=== PATIENT | female | born 1950 | race Caucasian/White ===

== ENCOUNTER 2019-10-15 08:19 | Outpatient (CLI) | payer MEDICARE, SELFPAY ==
--- NOTE | 2019-10-15 08:28 | MM_ITS ---
WS: [id number] BILATERAL DIGITAL SCREENING MAMMOGRAPHY WITH CAD CLINICAL INFORMATION: SCREENING HISTORY: Screening mammogram. No current complaints. COMPARISON: TECHNIQUE: Bilateral CC and MLO views. FINDINGS: Scattered fibroglandular densities bilaterally. No suspicious focal mass, asymmetry, calcifications, or architectural distortion. No evidence of malignancy. Stable dystrophic calcifications right breast . MM/[place] [id number] IMPRESSION: BI-RADS: 2-Benign FOLLOW UP: 1 Year Follow-up Recommend return to annual screening mammography.
== END 2019-10-15 08:20 | disposition home or self-care (01) ==
PROVIDERS: PCP Physician Assistant; Visit Provider Internal Medicine
DX: Z12.31 Encounter for screening mammogram for malignant neoplasm of breast (principal)
CPT/HCPCS: 77067

== ENCOUNTER 2019-10-26 14:25 | Outpatient (CLI) | payer MEDICARE, SELFPAY ==
--- NOTE | 2019-10-26 14:30 | XR_ITS ---
WS: [id number] DEXA (DUAL ENERGY X-RAY ABSORPTIOMETRY) Bone mineral density was performed using a [employer] machine. HISTORY: POST MENOPAUSAL COMPARISON: None available. Lumbar spine BMD (L1-L4): 0.977 g/cm2 T score: -1.7 Z score: 0.0 Total hip BMD: Left: 0.774 g/cm2. T score: -1.9 Z score: -0.4 Right: 0.756 g/cm2. T score: -2.0 Z score: -0.6 10 year probability of a major osteoporotic fracture is 26%. XR/XR DEXA axial skeleton* [id number] IMPRESSION: OSTEOPENIA based upon the WHO classification for females.
== END 2019-10-26 14:26 | disposition home or self-care (01) ==
LOC: RADWPI 14:27
PROVIDERS: PCP Physician Assistant; Visit Provider Physician Assistant
DX: Z78.0 Asymptomatic menopausal state (principal); M85.80 Other specified disorders of bone density and structure, unspecified site
CPT/HCPCS: 77080

== ENCOUNTER 2020-10-31 06:32 | Day surgery (SDC) | payer MEDICARE, SELFPAY ==
[2020-10-29 08:57] VITALS: BMI 23.3
[2020-10-31 07:18] VITALS: BP 111/66; PULSE 65; RESP 18; TEMP 36.6; O2SAT 98
[2020-10-31] MEDS: sodium chloride 0.9% 1,000 ML 30 ML IV (07:23)
--- NOTE | 2020-10-31 07:35 | ANES.PREANE2 ---
Pre-Anesthetic Assessment Pre-Anesthetic Assessment: Height/Weight: Height 1.65 m Weight 63.503 kg Temp Pulse Resp BP Pulse Ox 98 F 65 18 111/66 98 10/31/20 07:18 10/31/20 07:18 10/31/20 07:18 10/31/20 07:18 10/31/20 07:18 Preop Diagnosis: screening Proposed Procedure: Operation Date: 10/31/20 07:15 Proposed Procedures p Colonoscopy 29464 Z86.010(Not Applicable) - Mika Duke MD Familial anesthetic complications: none Was Beta Emma taken within 24 hours: N/A Was Clonidine taken within 24 hours: N/A Last intake: Intake Last Liquid Date 10/30/20 Last Liquid Time 18:00 Last Solid Date 10/29/20 Last Solid Time 16:00 Last Intake: 18:00 Social: Social History: No alcohol and No tobacco Exam: Pre-Anes Outpt Exam: alert, oriented x 3, clear to auscultation bilaterally and regular rate & rhythm Airway: Submandibular: WNL Cervical ROM: WNL MP: 1 Dentition: Full Pulmonary: Pulmonary: None reported CV/HEM: CV/HEM: None reported : : None reported Hepatic: Hepatic: None reported GI: GI: None reported Metabolic: Metabolic: None reported Musc/skel: Musc/skel: Lower Back Pain and OA/DJD Neuropsych: Neuropsych: None reported Anesthetic Plan: ASA status: 2 Anesthesia: MAC Risk of > 500 ml blood loss (7ml/kg in children): No Meds/Allergies Current Medications: Current Medications Generic Name Dose Route Start Last Admin Trade Name Freq PRN Reason Stop Dose Admin Sodium Chloride 1,000 mls @ 30 ml s/hr 10/31/20 07:15 10/31/20 07:23 Sodium Chloride 0.9% IV 11/01/20 07:14 30 mls/hr .Q24H BEAR Administration Data Anesthesia Cardiac Studies: No Data to Display
--- NOTE | 2020-10-31 07:41 | W.PM.OPSUD ---
Surgery/Procedure H&P Update DATE OF PROCEDURE: October 31, 2020 DATE H&P PERFORMED: 10/27/20 H&P UPDATE INFORMATION: I have reviewed H&P completed within last 30 days, I have examined patient prior to procedure, No changes to prior documentation and H&P to be scanned into chart PREOP DIAGNOSIS: history of adenomatous polyps PLANNED PROCEDURE: Operation Date: 10/31/20 07:15 Proposed Procedures p Colonoscopy 88947 Z86.010(Not Applicable) - Mika Duke MD Related Problem List Diagnoses (1) History of colon polyps:
[2020-10-31 08:16] VITALS: BP 94/61; PULSE 70; RESP 18; TEMP 36.4; O2SAT 97
[2020-10-31 08:27] VITALS: BP 104/65; PULSE 59; RESP 16; O2SAT 100
--- NOTE | 2020-10-31 10:16 | ANE.PACU2 ---
Inpatient post-anesthesia follow up: Airway intact: Yes Vital signs: Temperature 97.5 F Pulse Rate 59 Respiratory Rate 16 Blood Pressure 104/65 Pulse Oximetry 100 Oxygen Delivery Me thod Room Air Oxygen Flow Rate Fraction of Inspir ed Oxygen Hydration adequate: Yes Nausea and vomiting: No Pain level: 1
== END 2020-10-31 08:38 | disposition home or self-care (01) ==
PROVIDERS: PCP Physician Assistant; Visit Provider Family Medicine
PROC: 0DJD8ZZ Inspection of Lower Intestinal Tract, Via Natural or Artificial Opening Endoscopic (ICD-10-PCS; CPT 45378; principal; 2020-10-31 07:15)
DX: Z86.010 Personal history of colon polyps (principal); K64.8 Other hemorrhoids
CPT/HCPCS: 12345; 45378; 96360; J2704; J7030

== ENCOUNTER 2021-09-25 07:41 | Outpatient (CLI) | payer MEDICARE, SELFPAY ==
--- NOTE | 2021-09-25 07:51 | MM_ITS ---
WS: [id number] SCREENING DIGITAL BREAST TOMOSYNTHESIS MAMMOGRAM WITH CAD HISTORY: SCREENING COMPARISON: 10/15/2019, 09/22/2018 and 09/21/2017 Bilateral CC and MLO with tomosynthesis and synthetic mammography submitted. Computer aided detection analyzed. Breast composition: There are scattered areas of fibroglandular density. There is an asymmetry centra l to the nipple in the anterior breast seen only on the MLO projection. Asymmetries with spiculated m easuring 7 mm. Cluster benign calcifications mid breast at 12:00 RIGHT breast. MM/[place] [id number] IMPRESSION: BI-RADS: 0-Incomplete: Need additional imaging evaluation FOLLOW UP: Need Additional Imaging RIGHT breast: Spot compression views (MLO). True ML. Ultrasound to follow if ab normality persists.
== END 2021-09-25 07:42 | disposition home or self-care (01) ==
LOC: RAD 07:45
PROVIDERS: PCP Physician Assistant; Visit Provider Physician Assistant
DX: Z12.31 Encounter for screening mammogram for malignant neoplasm of breast (principal)
CPT/HCPCS: 77063; 77067

== ENCOUNTER 2021-09-29 15:43 | Outpatient (CLI) | payer MEDICARE, SELFPAY ==
--- NOTE | 2021-09-29 16:00 | XR_ITS ---
WS: [id number] SCREENING DEXA SCAN [employer] CLINICAL INFORMATION: POST MENOPAUSAL. COMPARISON: None. FINDINGS: The L1-L4 bone mineral density measures 1.007 g/cm2. This corresponds to a T score score of -1.4 and Z score of 0.4. Left femoral neck bone mineral density measures 0.773 g/cm2. This corresponds to a T score of -1.9 an d Z score of -0.2. Right femoral neck bone mineral density measures 0.742 g/cm2. This corresponds to a T score -2.1of an d Z score of -0.5. Mean femoral neck bone mineral density measures 0.758 g/cm2. This corresponds to a T score of -2.0 an d Z score of -0.3. XR/XR DEXA axial skeleton* [id number] IMPRESSION: Osteopenia Patient's FRAX calculated 10 year probability for major osteoporotic fracture i s 15.7 % and osteoporotic hip fracture is 4.7%. Bone mineralization lumbar spine has increased 3.1% since 2019 Bone mineralization femoral necks has decreased -0.9% since 2019
== END 2021-09-29 15:44 | disposition home or self-care (01) ==
PROVIDERS: PCP Physician Assistant; Visit Provider Physician Assistant
DX: Z78.0 Asymptomatic menopausal state (principal); M85.80 Other specified disorders of bone density and structure, unspecified site
CPT/HCPCS: 77080

== ENCOUNTER 2021-10-23 07:42 | Outpatient (CLI) | payer MEDICARE, SELFPAY ==
--- NOTE | 2021-10-23 07:46 | MM_ITS ---
WS: [id number] ADDITIONAL VIEWS RIGHT MAMMOGRAM WITH DIGITAL BREAST TOMOSYNTHESIS. HISTORY: Abnormal mammogram 09/25/2021. COMPARISON: 09/25/2021 and 10/15/2019. Spot compression views RIGHT breast in CC, MLO projections and true ML submitted with digital breast tomosynthesis and SM. The asymmetry seen only on the MLO projection of the RIGHT breast resolves with additional imaging. N ormal fibroglandular pattern is now present. This was superimposed soft tissue. Benign calcification 12:00. MM/[place] [id number] IMPRESSION: BI-RADS: 2-Benign FOLLOW UP: 1 Year Follow-up Return to annual screening mammography.
== END 2021-10-23 07:43 | disposition home or self-care (01) ==
LOC: RAD 07:43
PROVIDERS: PCP Physician Assistant; Visit Provider Physician Assistant
DX: R92.8 Other abnormal and inconclusive findings on diagnostic imaging of breast (principal)
CPT/HCPCS: 77061

== ENCOUNTER 2022-11-19 07:41 | Outpatient (CLI) | payer MEDICARE, SELFPAY ==
--- NOTE | 2022-11-19 07:49 | MM_ITS ---
WS: [id number] BILATERAL SCREENING DIGITAL TOMOSYNTHESIS MAMMOGRAM WITH CAD HISTORY: SCREENING COMPARISON: 10/23/2021 and 09/25/2021 and 10/15/2019 Bilateral CC and MLO views with tomosynthesis and synthetic mammography submitted. Computer aided det ection analyzed. Breast composition: There are scattered areas of fibroglandular density. No suspicious masses, microc alcifications or architectural distortion. Benign calcifications in each breast. IMPRESSION: MM/[place] [id number] BI-RADS: 2-Benign FOLLOW UP: 1 Year Follow-up
== END 2022-11-19 07:42 | disposition home or self-care (01) ==
PROVIDERS: PCP Physician Assistant; Visit Provider Physician Assistant
DX: Z12.31 Encounter for screening mammogram for malignant neoplasm of breast (principal)
CPT/HCPCS: 77063; 77067

== ENCOUNTER 2023-11-22 08:13 | Outpatient (CLI) | payer MEDICARE, SELFPAY ==
--- NOTE | 2023-11-22 08:20 | MM_ITS ---
WS: [id number] BILATERAL 3D TOMOSYNTHESIS DIGITAL SCREENING MAMMOGRAPHY WITH CAD CLINICAL INFORMATION: SCREENING HISTORY: Screening mammogram. No current complaints. COMPARISON: 2022 TECHNIQUE: Bilateral CC and MLO views. FINDINGS: Scattered fibroglandular densities bilaterally. No suspicious focal mass, asymmetry, calcifications, or architectural distortion. No evidence of malignancy. Stable coarse calcifications RIGHT breast. A few tiny punctate calcifications LEFT breast. MM/MM scr tomosynthesis [id number] IMPRESSION: DENSITY: There are scattered areas of fibroglandular density. BI-RADS: 2 - Benign. FOLLOW UP: 1 Year Follow-up Recommend return to annual screening mammography.
== END 2023-11-22 08:14 | disposition home or self-care (01) ==
LOC: RAD 08:14
PROVIDERS: PCP Physician Assistant; Visit Provider Physician Assistant
DX: Z12.31 Encounter for screening mammogram for malignant neoplasm of breast (principal); R92.323 Mammographic fibroglandular density, bilateral breasts; R92.1 Mammographic calcification found on diagnostic imaging of breast
CPT/HCPCS: 77063; 77067

== ENCOUNTER 2023-12-22 13:24 | Outpatient (CLI) | payer MEDICARE, SELFPAY ==
--- NOTE | 2023-12-22 13:28 | XR_ITS ---
WS: [id number] DEXA (DUAL ENERGY X-RAY ABSORPTIOMETRY) Bone mineral density was performed using a [employer] machine. HISTORY: POSTMENOPAUSAL COMPARISON: 09/29/2021 Lumbar spine BMD (L1-L4): 1.013 g/cm2 T score: -1.4 Z score: 0.4 Total hip BMD: Left: 0.760 g/cm2. T score: -2.0 Z score: -0.2 Right: 0.739 g/cm2. T score: -2.1 Z score: -0.4 10 year probability of a major osteoporotic fracture is 17.1%. Compared to the prior study from 09/29/2021. Lumbar spine bone mineral density has increased by 0.6%. Bilateral hips bone mineral density has decreased by 1.2%. XR/XR DEXA axial skeleton* [id number] IMPRESSION: OSTEOPENIA based upon the WHO classification for females. No significant change in bone mineral density since the prior studies.
== END 2023-12-22 13:25 | disposition home or self-care (01) ==
LOC: RAD 13:25
PROVIDERS: PCP Physician Assistant; Visit Provider Physician Assistant
DX: Z13.820 Encounter for screening for osteoporosis (principal); Z78.0 Asymptomatic menopausal state; M85.80 Other specified disorders of bone density and structure, unspecified site
CPT/HCPCS: 77080

== ENCOUNTER 2024-07-23 06:15 | Emergency (ER) | payer MEDICARE, SELFPAY ==
--- NOTE | 2024-07-23 06:32 | W.ED.GENADLT ---
HPI - General Adult General: Chief complaint: Abdominal Pain Stated complaint: R side & back pain, n,v Time Seen by Provider: 07/23/24 06:30 History of Present Illness: 74-year-old female presents emergency room with complaint of right flank and back pain. She has had some nausea and vomiting along with this. She denies any dysuria urgency or frequency no cough no rash no history of recurrent urinary tract infections or nephrolithiasis. No fever sweats or chills. 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 Mild exacerbation with movement such as sitting up in bed during exam. Associated symptoms: Reports nausea and vomiting; Deny chest pain, dyspnea or rash Related Data Home Medications ?Medication ?Instructions ?Recorded ?Confirmed ascorbic acid (vitamin C) 500 mg 500 mg PO DAILY 10/29/20 07/23/24 tablet (Vitamin C) biotin 10,000 mcg capsule 10,000 mcg PO DAILY 10/29/20 07/23/24 calcium carbonate (Calcium 600) 1,500 mg PO DAILY 10/29/20 07/23/24 cholecalciferol (vitamin D3) 25 25 mcg PO DAILY 10/29/20 07/23/24 mcg (1,000 unit) chewable tablet (Vitamin D3) magnesium 200 mg tablet 400 mg PO DAILY 10/29/20 07/23/24 [id number] 8 mg-folic 400 1 tab PO DAILY 10/29/20 07/23/24 mcg-K 50 mcg-lutein 300 mcg tablet (Multivitamin Women 50 Plus) vit A 300 mcg-C 200 mg-E 27 1 tab PO BID 10/29/20 07/23/24 mg-lutein 2 mg and minerals tablet (Vision Formula (with lutein)) acetaminophen 500 mg tablet 1,000 mg PO Q6H PRN Fever Or Pain 07/23/24 07/23/24 (Tylenol Extra Strength) Previous Rx's ?Medication ?Instructions ?Recorded diclofenac sodium 75 mg 75 mg PO Q12H PRN pain #20 tabs 07/23/24 tablet,delayed release tizanidine 4 mg tablet 4 mg PO Q6H PRN muscle spasticity 07/23/24 #20 tabs Allergies Allergy/AdvReac Type Severity Reaction Status Date / Time latex Allergy ADR-Itching Verified 10/29/20 08:59 Sulfa (Sulfonamide Allergy ADR-Itching Verified 10/29/20 08:59 Antibiotics) Review of Systems Const: Denies: fever(s) or chills Card: Denies: chest pain Resp: Denies: dyspnea GI: Reports: nausea and vomiting; Denies: abdominal pain : Reports: flank pain (Right); Denies: dysuria, urinary frequency or urinary urgency Musc: Reports: back pain; Denies: neck pain Skin/Breast: Denies: rash PFSH ED PFSH: Medical History (Updated 07/23/24 @ 08:53 by Deondre Argueta DO) History of colon polyps Surgical History (Updated 07/23/24 @ 06:54 by Deondre Argueta DO) History of cholecystectomy Physical Exam Const: COMMON NORMALS: no acute distress GENERAL APPEARANCE: cooperative and comfortable ORIENTATION/CONSCIOUSNESS: Yes awake, Yes oriented to person, Yes oriented to place and Yes oriented to time HENMT: COMMON NORMALS: normocephalic, atraumatic and hearing grossly normal bilaterally HEAD & SCALP: normocephalic and atraumatic Resp: COMMON NORMALS: normal respiratory effort, No retractions, No use of accessory muscles and clear to auscultation bilaterally AUSCULTATION: clear to auscultation bilaterally Cardio: COMMON NORMALS: regular rate, regular rhythm and No murmurs present (Cardio) RATE: regular rate RHYTHM: regular rhythm GI: COMMON NORMALS: Soft to palpation and No hepatosplenomegaly present AUSCULTATION: Yes normoactive bowel sounds PALPATION: Yes Soft to palpation, No Tenderness to palpation present (GI), No Guarding due to palpation present (GI) and Yes No hepatosplenomegaly present Extremity: COMMON NORMALS: normal to inspection, capillary refill normal, no clubbing, cyanosis or edema, no calf tenderness and no pedal edema Neuro: SENSORIUM/ORIENTATION: Yes oriented to person, Yes oriented to place and Yes oriented to time Skin: COMMON NORMALS: no rashes or lesions noted GENERAL SKIN EXAM: no rashes or lesions noted Course Vital Signs: Vital signs: Vital Signs Temperature 97.7 F 07/23/24 06:37 Pulse Rate 62 07/23/24 08:56 Respiratory Rate 16 07/23/24 08:56 Blood Pressure 154/62 07/23/24 08:56 Pulse Oximetry 99 07/23/24 08:56 Oxygen Delivery Me thod Room Air 07/23/24 07:21 MDM - General Adult Medical Decision Making Patient did have some ketones in urine anion gap not very significant at this point. CT of the abdomen pelvis negative for any acute pathology has some moderate constipation. Her presentation is more suggestive of the pain being caused by musculoskeletal suspect related to the activity yesterday we will discharge her home with anti-inflammatories and muscle relaxer. There is a comment about bile ducts on the CT however her pain is not consistent with this. She does not have any right upper quadrant abdominal pain and there is no abnormalities in her liver functions or bilirubin. Medical Records I reviewed the patient's medical records. Lab Data I reviewed the patient's lab results. 07/23/24 06:40 07/23/24 06:40 Radiology Impressions Abdomen/Pelvis CT 07/23/24 06:55 IMPRESSION: 1. There is a large amount of stool content overall suggestive of constipation with otherwise nonobstructive overall bowel-gas appearance. 2. There is some prominence of the bile ducts overall albeit with cholecystectomy type changes. Consider hepatobiliary laboratory profile studies. 3. No fluid collections or acute inflammatory stranding changes are appreciated. 4. There is an oval nodular focus of the left paravertebral thoracic margin of uncertain chronicity and etiology. Consider comparison any previous older study if clinically available. Otherwise, consider MRI of the thoracic spine with and without contrast for further evaluation. Laboratory Results WBC 7.58 10^3/uL (3.29-11.43) 07/23/24 06:40 RBC 4.25 10^6/uL (3.85-5.65) 07/23/24 06:40 Hgb 13.00 g/dL (11.27-16.99) 07/23/24 06:40 Hct 39.3 % (36-47) 07/23/24 06:40 MCV 92.5 fl (85-98) 07/23/24 06:40 MCH 30.6 pg (27-33) 07/23/24 06:40 MCHC 33.1 g/dL (30-55) 07/23/24 06:40 RDW 12.1 % (12.1-15.1) 07/23/24 06:40 Plt Count 230 10^3/cmm (157-399) 07/23/24 06:40 MPV 9.4 fL (7.4-10.4) 07/23/24 06:40 Neut % (Auto) 80.6 % 07/23/24 06:40 Lymph % (Auto) 14.6 % 07/23/24 06:40 [place] % (Auto) 3.6 % 07/23/24 06:40 Eos % (Auto) 0.1 % 07/23/24 06:40 Baso % (Auto) 0.8 % 07/23/24 06:40 Neut # (Auto) 6.11 10^3/uL (1.8-7.7) 07/23/24 06:40 Lymph # (Auto) 1.1 10^3/uL (0.8-4.8) 07/23/24 06:40 [place] # (Auto) 0.3 10^3/uL (0.2-0.9) 07/23/24 06:40 Eos # (Auto) 0.0 10^3/uL (0.0-0.8) 07/23/24 06:40 Baso # (Auto) 0.1 10^3/uL (0.0-0.1) 07/23/24 06:40 Nucleated RBC % (auto) 0 % 07/23/24 06:40 Nucleated RBCs # 0.0 /100WBC 07/23/24 06:40 Sodium 139 mmol/L (136-145) 07/23/24 06:40 Potassium 3.7 mmol/L (3.5-5.1) 07/23/24 06:40 Chloride 104 mmol/L (98-107) 07/23/24 06:40 Carbon Dioxide 19 mmol/L (22-29) L 07/23/24 06:40 Anion Gap 19.7 (5-19) H 07/23/24 06:40 BUN 16 mg/dL (8-23) 07/23/24 06:40 Creatinine 0.7 mg/dL (0.5-0.9) 07/23/24 06:40 GFR Calculation Not Reportable 07/23/24 06:40 Glucose 116 mg/dL (65-115) H 07/23/24 06:40 Calculated Osmolality 290 mOsm/kg (285-295) 07/23/24 06:40 Calcium 9.2 mg/dL (8.5-10.5) 07/23/24 06:40 Total Bilirubin 0.7 mg/dL (0.15-1.2) 07/23/24 06:40 AST 22 U/L (0-32) 07/23/24 06:40 ALT 17 U/L (0-33) 07/23/24 06:40 Alkaline Phosphatase 82 U/L (35-105) 07/23/24 06:40 Total Protein 7.4 g/dL (6.6-8.7) 07/23/24 06:40 Albumin 4.2 g/dL (3.5-5.2) 07/23/24 06:40 Globulin 3.2 g/dL (1.3-4.6) 07/23/24 06:40 Urine Color Yellow (Yellow) 07/23/24 07:37 Urine Appearance Clear (CLEAR) 07/23/24 07:37 Urine pH 6.0 (5-7) 07/23/24 07:37 Ur Specific [place] 1.040 (1.005-1.030) H 07/23/24 07:37 Urine Protein Negative (Negative) 07/23/24 07:37 Urine Glucose (UA) Negative (Normal) 07/23/24 07:37 Urine Ketones 3+ (Negative) H 07/23/24 07:37 Urine Blood Negative (Negative) 07/23/24 07:37 Urine Nitrate Negative (Negative) 07/23/24 07:37 Urine Bilirubin Negative (Negative) 07/23/24 07:37 Urine Urobilinogen 0.2 mg/dL (Negative) 07/23/24 07:37 Ur Leukocyte Esterase Negative (Negative) 07/23/24 07:37 Urine RBC 0-2 /hpf (0-2) 07/23/24 07:37 Urine WBC 0-5 /hpf (0-5) 07/23/24 07:37 Ur Squamous Epith Cells 0-5 /hpf (0-5) 07/23/24 07:37 Amorphous Sediment Not Reportable 07/23/24 07:37 Urine Bacteria None seen /hpf (NONE) 07/23/24 07:37 Hyaline Casts 0.81 /lpf 07/23/24 07:37 All radiology interpretation(s) finalized by discharge Discharge Plan Discharge Patient Disposition: Home Clinical Impression: Acute right-sided thoracic back pain, Constipation Condition: Stable Prescriptions: New tizanidine 4 mg tablet 4 mg PO Q6H PRN (Reason: muscle spasticity) Qty: 20 0RF Rx Instructions: do not exceed 3 doses per 24 hrs diclofenac sodium 75 mg tablet,delayed release (DR/EC) 75 mg PO Q12H PRN (Reason: pain) Qty: 20 0RF No Action calcium carbonate [Calcium 600] 600 mg calcium (1,500 mg) Tablet 1,500 mg PO DAILY ascorbic acid (vitamin C) [Vitamin C] 500 mg Tablet 500 mg PO DAILY biotin 10,000 mcg Capsule 10,000 mcg PO DAILY magnesium 200 mg Tablet 400 mg PO DAILY Vision Formula (with lutein) 1,000 unit-200 mg-60 unit-2 mg Tablet 1 tab PO BID cholecalciferol (vitamin D3) [Vitamin D3] 25 mcg (1,000 unit) Tablet,Chewable 25 mcg PO DAILY Multivitamin Women 50 Plus 8 mg iron-400 mcg-300 mcg Tablet 1 tab PO DAILY acetaminophen [Tylenol Extra Strength] 500 mg Tablet 1,000 mg PO Q6H PRN (Reason: Fever Or Pain) Discharge Orders: Discharge ED (Routine); Ordered 07/23/24 Ordered By: Deondre Argueta Referrals: Jossie Salmon PA [Primary Care Provider, Physicians Correspondence Specialist] Discharge Diet: Usual diet Discharge Activity: Increase activity as tolerated Patient Instructions: Opioid Safety, Pain Management Activity Restrictions/Additional Instructions: Thank you for choosing [facility] for your healthcare needs today. It is very important that you follow up as instructed or that you return to the Emergency Department should you have concerns or if your condition changes or worsens in any way. You were seen in the emergency room with complaints of right flank pain. Examination in the emergency room did not show any elevation of your white count CT did not show any acute pathology there is no sign of a bladder infection or kidney stone no sign of any liver problems. Based on your presentation description suspect some of this movement musculoskeletal from the activities you were doing yesterday. There was constipation noted on the CT this could play a role as well. You were given prescriptions for diclofenac and tizanidine to use as needed for back pain you can also use [id number] laxatives to relieve the constipation that was noted on the CT. Follow-up with your primary care doctor if your symptoms persist Print Language: [place] Coding Level of Care Code ED Glaze Carrier for Francisca Milan
[2024-07-23 06:37] VITALS: BP 145/61; PULSE 53; RESP 16; TEMP 36.5; O2SAT 99; BMI 22.6
[2024-07-23 06:45] LABS: Basophils # 0.1 10^3/uL (0.0-0.1); Basophils % 0.8 %; Eosinophils % 0.1 %; Hematocrit 39.3 % (36-47); Lymphocytes # 1.1 10^3/uL (0.8-4.8); Lymphocytes % 14.6 %; Mean Corpuscular HGB Conc 33.1 g/dL (30-55); Mean Corpuscular Hemoglobin 30.6 pg (27-33); Mean Corpuscular Volume 92.5 fl (85-98); Mean Platelet Volume 9.4 fL (7.4-10.4); Monocytes # 0.3 10^3/uL (0.2-0.9); Monocytes % 3.6 %; Neutrophils # 6.11 10^3/uL (1.8-7.7); Neutrophils % 80.6 %; Nucleated Red Blood Cells % 0 %; Platelet Count 230 10^3/cmm (157-399); Red Blood Count 4.25 10^6/uL (3.85-5.65); Red Cell Distribution Width 12.1 % (12.1-15.1); White Blood Count 7.58 10^3/uL (3.29-11.43)
--- NOTE | 2024-07-23 06:55 | CTR_ITS ---
PROCEDURE INFORMATION: Exam: CT Abdomen And Pelvis With Contrast Exam date and time: 07/23/2024 7:23 AM Age: 74 years old Clinical indication: Abdominal pain; Localized; Right; Prior surgery; Surgery date: 6+ months; Surgery type: Gb; C/O RT sided abd/flank pain with nausea. ; Additional info: Abd pain. No history of recent trauma or surgery is otherwise provided. TECHNIQUE: Imaging protocol: Computed tomography of the abdomen and pelvis with contrast. 205image(s) are provided. Radiation optimization: All CT scans at this facility use at least one of these dose optimization techniques: automated exposure control; mA and/or kV adjustment per patient size (includes targeted exams where dose is matched to clinical indication); or iterative reconstruction. Contrast material: OMNI 350; Contrast volume: 100 ml; Contrast route: INTRAVENOUS (IV); Other technique: Axial images are available with sagittal and coronal reconstruction views. Automated dose exposure control is utilized. The DLP is 369.87. COMPARISON: No relevant prior studies are currently available. RADIATION DOSE METRICS: Total DLP (mGy-cm): 369.87 FINDINGS: Lungs: No lobar consolidation is appreciated. There is minimal subsegmental atelectasis versus post inflammatory scarring demonstrated. Heart: No significant pericardial fluid collection is appreciated. Liver: The hepatic parenchyma appears subtly heterogeneous overall. There is some cystic appearance although too small to characterize right lobe. There does appear to be some slight periportal tracking as well as borderline bile ducts. Gallbladder and biliary ducts: Cholecystectomy clips are present. The distal common bile duct measures around 6 mm with no radiopaque obstructive calculus currently appreciated.Distal most, ampullary level evaluation is limited. Pancreas: No pancreatic ductal dilatation or calculus is currently appreciated. Spleen: Unremarkable. Adrenal glands: There appears to be subtle adrenal hypertrophy. Kidneys and ureters: There is homogeneous renal parenchymal enhancement with no radiopaque obstructive calculus or hydronephrosis appreciated. There appear to be some areas of early contrast excretion versus nonobstructive calcifications for example including of the left. Stomach and bowel: Some aspects of the colon are undistended. This may also be peristaltic related.There is abundant stool present limiting mucosal detail evaluation.The bowel gas pattern appears nonobstructive. There is a small sliding-type hiatal hernia demonstrated with slight gastroesophageal fold thickening. There appears to be some small duodenal diverticular related change present. There are some minimal small bowel fluid levels without significant dilatation overall.Consider if there is a history of diarrhea or gastroenteritis. Appendix: No evidence of appendicitis. Intraperitoneal space: No free air or significant free fluid collections are appreciated. Vasculature: No abdominal aortic saccular aneurysmal dilatation is appreciated with some chronic atherosclerotic related changes. Lymph nodes: There are subcentimeter predominant para-aortic and mesenteric lymph nodes overall present. Urinary bladder: The bladder is incompletely fluid filled for evaluation which may exagerate the wall thickness. This can also be seen with post inflammation sequela. Reproductive: There appears to be some small amount of central uterine canal heterogeneity, fluid. Bones/joints: No displaced fracture or dislocation is appreciated.There are some degenerative changes of the hips and spine overall present. There is some decreased vertebral, superior endplate height albeit with well corticated appearing margins and Schmorl's node related change of the fourth lumbar level. Consider overall if there is localized point tenderness. There is a left paraspinal oval nodular focus which measures around 2.1 x 1.5 cm with some marginal calcification posteriorly as well as central Hounsfield units of around 50. This directly abuts the adjacent eleventh thoracic vertebral margin. The etiology is uncertain. Soft tissues: No radiopaque foreign body or diffuse subcutaneous emphysema is appreciated. There does appear to be some punctate subcutaneous emphysema although may be injection related for example posterolaterally on the right. Consider if there is history of injection at this site. No subcutaneous fluid collections are appreciated. There is some motion artifact present. CT/CT abdomen pelvis w con* [id number] IMPRESSION: 1. There is a large amount of stool content overall suggestive of constipation with otherwise nonobstructive overall bowel-gas appearance. 2. There is some prominence of the bile ducts overall albeit with cholecystectomy type changes. Consider hepatobiliary laboratory profile studies. 3. No fluid collections or acute inflammatory stranding changes are appreciated. 4. There is an oval nodular focus of the left paravertebral thoracic margin of uncertain chronicity and etiology. Consider comparison any previous older study if clinically available. Otherwise, consider MRI of the thoracic spine with and without contrast for further evaluation.
[2024-07-23 07:01] LABS: Alanine Aminotransferase 17 U/L (0-33); Albumin Level 4.2 g/dL (3.5-5.2); Alkaline Phosphatase 82 U/L (35-105); Anion Gap 19.7 (5-19); Aspartate Amino Transferase 22 U/L (0-32); Blood Urea Nitrogen 16 mg/dL (8-23); Calcium 9.2 mg/dL (8.5-10.5); Carbon Dioxide 19 mmol/L (22-29); Chloride 104 mmol/L (98-107); Creatinine Clr Calc Pharmacy 57.3424; Globulin 3.2 g/dL (1.3-4.6); Glucose 116 mg/dL (65-115); Osmolality Calculated 290 mOsm/kg (285-295); Potassium 3.7 mmol/L (3.5-5.1); Sodium 139 mmol/L (136-145); Total Bilirubin 0.7 mg/dL (0.15-1.2); Total Protein 7.4 g/dL (6.6-8.7)
[2024-07-23] MEDS: promethazine 25 mg/mL SDV 1 mL IM (07:07)
[2024-07-23] MEDS: sodium chloride 0.9% 1,000 ML 999 ML IV (07:07)
[2024-07-23] MEDS: orphenadrine 30 mg/mL Inj 2 mL 60 MG IM (07:18)
[2024-07-23] MEDS: ketorolac 30 mg/mL INJ IVP (07:18)
[2024-07-23 07:21] VITALS: BP 145/61; PULSE 52; RESP 16; O2SAT 99
[2024-07-23] MEDS: iohexol 350 mg/mL 500 mL Btl (per mL) IV (07:32)
[2024-07-23] MEDS: ondansetron 2 mg/ML SDV 2 mL 4 MG IVP (07:59)
[2024-07-23 08:01] LABS: Bilirubin Urine Negative (Negative); Blood Urine Negative (Negative); Glucose Urine UA Negative (Normal); Ketones Urine 3+ (Negative); Leukocyte Esterase Urine Negative (Negative); Nitrate Urine Negative (Negative); Protein Urine Negative (Negative); Urine Appearance Clear (CLEAR); Urine Color Yellow (Yellow); Urobilinogen Urine 0.2 mg/dL (Negative)
[2024-07-23 08:04] LABS: Add Urine Microscopic? YES; Bacteria Urine None Seen /hpf; Hyaline Casts Urine 0.81 /lpf; RBC Urine 0-2 /hpf (0-2); Squamous Epithelial Cell Urine 0-5 /hpf (0-5); WBC Urine 0-5 /hpf (0-5)
[2024-07-23 08:18] LABS: Add Urine Culture? No
[2024-07-23 08:56] VITALS: BP 154/62; PULSE 62; RESP 16; O2SAT 99
== END 2024-07-23 09:01 | disposition home or self-care (01) ==
PROVIDERS: Emergency Provider Family Medicine; PCP Physician Assistant
DX: M54.6 Pain in thoracic spine (principal); K59.00 Constipation, unspecified
CPT/HCPCS: 74177; 80053; 81001; 85025; 96361; 96372; 96374; 96375; 99285; J1885; J2360; J2405; J2550; J7030

== ENCOUNTER 2024-11-22 08:19 | Outpatient (CLI) | payer MEDICARE, SELFPAY ==
--- NOTE | 2024-11-22 08:25 | MM_ITS ---
WS: [id number] BILATERAL SCREENING DIGITAL TOMOSYNTHESIS MAMMOGRAM WITH CAD HISTORY: ANNUAL SCREENING COMPARISON: 11/22/2023, 11/19/2022, 09/25/2021 Bilateral CC and MLO views with tomosynthesis and synthetic mammography submitted. Computer aided detection analyzed. Breast composition: There are scattered areas of fibroglandular density. No suspicious masses, microcalcifications or architectural distortion. Benign coarse calcifications in each breast. MM/MM scr BI tomosynthesis [id number] IMPRESSION: BI-RADS: 2 - Benign. FOLLOW UP: 1 Year Follow-up
== END 2024-11-22 08:20 | disposition home or self-care (01) ==
LOC: RAD 08:20
PROVIDERS: PCP Physician Assistant; Visit Provider Physician Assistant
DX: Z12.31 Encounter for screening mammogram for malignant neoplasm of breast (principal); R92.323 Mammographic fibroglandular density, bilateral breasts; R92.1 Mammographic calcification found on diagnostic imaging of breast
CPT/HCPCS: 77063; 77067

== ENCOUNTER 2024-11-28 07:42 | Outpatient (CLI) | payer MEDICARE, SELFPAY ==
--- NOTE | 2024-11-28 07:51 | MRR_ITS ---
PROCEDURE INFORMATION: Exam: MR Thoracic Spine Without and With Contrast Exam date and time: 11/28/2024 8:09 AM Age: 74 years old Clinical indication: Abnormal findings; Abnormal radiologic findings of thoracic; Prior surgery; Surgery date: 6+ months; Surgery type: Gb; There is an oval nodular focus of the left paravertebral thoracic. Margin; Was noted on a recent CT abdomen pelvis w con(07-23-24); Additional info: Mass of spine TECHNIQUE: Imaging protocol: Magnetic resonance imaging of the thoracic spine without and with contrast. Contrast material: MULTIHANCE; Contrast volume: 13 ml; Contrast route: INTRAVENOUS (IV); COMPARISON: CT abdomen pelvis w con* [id number] 07/23/2024 7:23 AM FINDINGS: Bones/joints: Alignment is normal. Mild diffuse degenerative disc disease. Spinal cord: Normal signal. No cord compression. Soft tissues: Well-circumscribed mildly enhancing mass left paraspinous region at T11. This measures approximately 2.5 x 2.2 x 1.6 cm. This is unchanged in appearance in comparison to CT from 07/23/2024. MR/MR thoracic spine wo/w [id number] IMPRESSION: 1. Mild degenerative changes. 2. Well-circumscribed mildly enhancing masslike paraspinous region at T11. This has not changed in size in comparison to a CT scan from 07/23/2024. Benign lesion is favored. This could represent a lymph node, nerve sheath tumor. Followup in six months is recomended. 3. Otherwise unremarkable examination.
[2024-11-28] MEDS: gadobenate dimeglumine 20 mL vial IV (08:33)
== END 2024-11-28 07:43 | disposition home or self-care (01) ==
LOC: RAD 07:45
PROVIDERS: PCP Physician Assistant; Visit Provider Physician Assistant
DX: C72.0 Malignant neoplasm of spinal cord (principal); M51.34 Other intervertebral disc degeneration, thoracic region
CPT/HCPCS: 72157